=== PATIENT | female | born 1960 | race Caucasian/White ===

== ENCOUNTER 2019-04-10 05:47 | Day surgery (SDC) | payer OTHER, SELFPAY ==
--- NOTE | 2019-04-06 16:41 | PCM.HP.BLA ---
History and Physical Date of Admission: 04/10/19 Liane Nguyen Physician NUTRITION SPECIALIST H&P Signed Encounter Date: 03/25/2019 Expand All Collapse All Hide copied text Hover for details Senia Mcconnell is a 59 year old female who presents for pmb, endometrial polyp- in office endosee reveal polyp. Will proceed with hysteroscopy, dilation and curettage, polypectomy- location of the polyp is right fundal. Denies CP, SOB, Dizziness ? PAST MEDICAL HISTORY PAST MEDICAL HISTORY Diagnosis Date ? EFRAIN-inhibitor cough 03/07/2011 ? Calcaneal spur 01/02/2011 ? Essential hypertension 05/06/2007 ? GERD (gastroesophageal reflux disease) 11/14/2017 ? Obesity, Class II, BMI 35-39.9 11/14/2017 ? Plantar fasciitis, bilateral ? ? Post-menopausal 04/05/2010 ? Posterior tibial tendon dysfunction, left 05/30/2016 ? PAST SURGICAL HISTORY PAST SURGICAL HISTORY Procedure Laterality Date ? COLONOSCOPY ? 11/18/2012 ? EXTENSIVE FOOT SURGERY Left 03/2016 ? 1st MTPJ fusion, Mikayla 2nd, neuroma excision ? FAMILY HISTORY FAMILY HISTORY Problem Relation Age of Onset ? Hypertension Mother ? ? Heart Mother ? ? from heart attack ? Heart Father ? ? Cancer Brother ? ? pancreatic cancer ? Heart Attack Brother ? ? Cancer Brother ? ? oral cancer, metastatic ? Heart Attack Brother ? ? Heart Paternal Grandfather ? ? SOCIAL HISTORY Social History ? Tobacco Use ? Smoking status: Former Smoker ? ? Packs/day: 1.00 ? ? Years: 20.00 ? ? Pack years: 20.00 ? ? Types: Cigarettes ? ? Last attempt to quit: 04/15/2001 ? ? Years since quittin.9 ? Smokeless tobacco: Never Used Substance Use Topics ? Alcohol use: No ? Drug use: No ? CURRENT MEDICATIONS Current Outpatient Medications Medication Sig ? ibuprofen (MOTRIN) 600 mg tablet Take 1 tablet by mouth every 6 hours as needed. FOR PAIN. ? miSOPROStol (CYTOTEC) 200 mcg tablet Take two tablets PO night before procedure and two tablets morning of procedure ? triamterene-hydrochlorothiazide 37.5-25 mg per capsule Take 1 capsule by mouth once daily. ? diltiazem CD (CARDIZEM CD, CARTIA XT) 240 mg 24 hr capsule Take 1 capsule by mouth once daily. ? omeprazole (PRILOSEC) 20 mg capsule Take 1 capsule by mouth daily before breakfast. 1/2 hr before meal. ? losartan (COZAAR) 100 mg tablet Take 1 tablet by mouth once daily. ? No current facility-administered medications for this visit. ? Allergies As of Date: 03/25/2019 Allergen Noted Reaction LISINOPRIL 03/07/2011 Cough TERBINAFINE 11/18/2012 Other: See Comments ? Fully Assessed 03/10/2019 ? ? REVIEW OF SYSTEMS Abdomen: no pain Bladder: no dysuria. Expanded ROS: GENERAL: Negative for fever Allergies and current medication updated:Yes ? EXAM: BP 136/78 Wt 226 lb (102.5kg) LMP 03/19/2010 ? GENERAL: pleasant, female in no apparent distress HEENT: Normocephalic, atraumatic, mucus membranes moist and no lesions NECK: full range of motion DERMATOLOGY: Normal, without lesions, non-icteric and non-hirsute PELVIC: external genitalia normal, normal Bartholin's glands, urethra, [place]'s glands, no vulvar lesions, no cervical lesions, good vaginal support, physiologic discharge present, normal appearing perineal body and perianal region NEURO: alert and oriented x3,exam grossly non-focal EXTREMITIES: normal ? ASSESSMENT AND PLAN: Encounter Diagnosis ? ? ICD-10-CM ? 1. PMB (postmenopausal bleeding) N95.0 ? 2. Endometrial polyp N84.0 ? ? 3. Pt has been counseled on risks/benefits and alternatives of surgery including but not limited to anesthesia, bleeding, infection, uterine perforation with subsequent injury to pelvic structures including bowel, bladder, and vessels. Pt wishes to proceed with surgery at this time. 4. Consent signed 5. Post op meds given. ? ? Liane Edwards MD ?4:27 PM Office Visit on 03/25/2019
[2019-04-10] VITALS (7 sets, daily range): BP systolic 113–142; BP diastolic 61–87; PULSE 64–79; RESP 16; TEMP 36.4–36.8; O2SAT 92–96; BMI 38.3
[2019-04-10] MEDS: Lactated Ringers 1,000 ML 100 ML IV (06:22)
[2019-04-10 06:24] LABS: Hematocrit 45.3 % (37-47); Hemoglobin 15.1 g/dL (12.0-15.0); Mean Corp Hgb Conc 33.3 g/dL (32-36); Mean Corpuscular Hgb 29.6 pg (27.0-32.0); Mean Corpuscular Volume 88.8 fL (81-99); Mean Platelet Vol. 9.3 fl (6.2-12.0); Platelet Count 403 K/mm3 (150-450); RBC Distribution Width CV 13.3 % (11.6-14.6); RBC Distribution Width SD 43.6 fl (35.1-43.9); White Blood Count 9.2 K/mm3 (4.4-11.0)
--- NOTE | 2019-04-10 07:30 | EMB_PTH ---
PATIENT: ODALIS BRITT LOC: [facility] [place] U#:[id number] AGE/SX: 59/F ROOM: RE04/10/[address]: Dr. Liane Edwards, MDDOB: 1960 BED: DIS: 04/10/2019 SPEC #: [id number] RECD: 04/10/19 09:37 STATUS: CHRISTY JUANCARLOS #: [id number] DAKSHA: 04/10/19 07:[address]: Liane Edwards DEPT: SURGICAL PATHOLOGY RECD BY: Albertina Celestin ENTERED: 04/10/19 10:45 SP TYPE: ENDOM BX/C ONOFRE DR: Dr. Duong Collins MD Tissues: Endometrium, NOS Procedures: Surgery Specimen Level IV HEADER OPERATION: Hysteroscopy, D & C, polypectomy, Symphion PRE-OP DIAGNOSIS: Postmenopausal bleeding N95.0, endometrial polyp N84.0 TISSUE SUBMITTED: Endometrial polyp MICROSCOPIC DIAGNOSIS Endometrium, curettage: Polypoid fragments of proliferative endometrium with focal glandular breakdown and cystic change. AM:naga 04/13/19 MICROSCOPIC DESCRIPTION Slides are reviewed. GROSS DESCRIPTION Received in fixative is one container labeled with the patient's name and designated endometrial polyp. The specimen consists of multiple irregular fragments of light pink-marks soft tissue that in aggregate measure 2 x 1 x 0.2 cm. The specimen is totally submitted in one cassette. / AM:naga 04/10/19 TC:5 CPT: 08814
[2019-04-10] MEDS: Lubricating Jelly 60 GM Tube 30 GM TOPICAL (07:39)
--- NOTE | 2019-04-10 07:44 | PCM.OPRPT ---
Report of Operation Date of Procedure: 04/10/19 Pre-Operative Diagnosis: PMB, endometrial polyp Post-Operative Diagnosis: same Surgery/Procedure Performed:: hysteroscopy, D&C, polypectomy with symphion Description of Surgical Findings:: Endometrial polyp arising from right fundal aspect Type of Anesthesia:: MAC Specimen's removed: endometrial polyp Drains: none Estimated Blood Loss (mL): minimal Fluids Replaced: 400 Description of Procedure: informed consent was obtained the patient was taken the operating room she was placed in supine position. She was given anesthesia. She was then placed in the [facility] where she was prepped and draped in the normal sterile fashion. bladder drained, 200cc urine. At this time the weighted speculum was placed in the posterior fornix of vagina. Single-tooth tenaculum was used to gently grasp the anterior lip the cervix. At this time the uterine cavity was sounded to approximately 7cm. Gentle dilatation was performed once adequate dilatation of the cervix was achieved the hysteroscope using normal saline as a distention medium was placed. endometrial polyp from right fundal aspect appreciated. Otherwise no gross abnormalities. Tubal ostia visualized. symphion resecting device opened and used to removed polyp. This will be sent to pathology for evaluation. Procedure was deemed complete successful there are no complications. Anticipated normal postoperative course. Instrument lap count correct ?2. fluid deficit was 350cc Vaginal Sweep was negative. Grafts/Implants Used: none - Complications none - Admit VTE Documentation VTE Present on Admission: Yes VTE Mechan Device Prophylaxis: SCD's VTE Pharm Prophylaxis ordered?: No
--- NOTE | 2019-04-10 07:48 | DCINST_ITS ---
Discharge Diet: No Restrictions Discharge Activity: Return to Normal Activity, May Shower, May Take a Tub Bath - in 2 weeks. Allergies/Adverse Reactions: Allergies lisinopril Adverse Reaction (Verified 04/10/19 06:10) cough terbinafine Adverse Reaction (Verified 04/10/19 06:10) bladder inflammation Medications to take at Discharge Diltiazem HCl [Cartia Xt] 240 mg PO DAILY 04/06/19 Losartan Potassium [Cozaar] 100 mg PO DAILY 04/06/19 Omeprazole [Prilosec] 20 mg PO DAILY PRN 04/06/19 Triamterene 37.5MG/Hctz 25MG [Maxzide 37.5 mg-25 mg Tablet] 1 tab PO DAILY 04/06/19 Primary Care Physician: Duong Collins MD [Primary Care Provider] - Test Results: Test results from this visit will be discussed in further detail at your follow- up appointment, if applicable.
== END 2019-04-10 08:51 | disposition home or self-care (01) ==
LOC: SDC 05:51 → AC 05:53
PROVIDERS: Family Provider Internal Medicine; PCP Internal Medicine; Referring Provider Obstetrics & Gynecology; Visit Provider Obstetrics & Gynecology
PROC: 0UB98ZZ Excision of Uterus, Via Natural or Artificial Opening Endoscopic (ICD-10-PCS; CPT 58558; principal; 2019-04-10 07:15)
DX: N84.0 Polyp of corpus uteri (principal); I10 Essential (primary) hypertension; K21.9 Gastro-esophageal reflux disease without esophagitis; E66.9 Obesity, unspecified; Z87.891 Personal history of nicotine dependence; Z79.899 Other long term (current) drug therapy; Z68.38 Body mass index [BMI] 38.0-38.9, adult
CPT/HCPCS: 58558; 36415; 85027; 88305; J7120; J2405

== ENCOUNTER 2022-01-18 07:00 | Emergency (ER) | payer OTHER, SELFPAY ==
[2022-01-18 07:02] VITALS: BP 164/141; PULSE 92; RESP 16; TEMP 36.2; O2SAT 97; BMI 33.2
--- NOTE | 2022-01-18 07:15 | CT_ITS ---
STUDY: CT ABDOMEN AND PELVIS WITH CONTRAST REASON FOR EXAM: Female, 61 years old. One week history of worsening abdominal pain with nausea and vomiting. RADIATION DOSAGE (If Supplied By Facility): CTDIvol = ( 13.39 ) mGy, DLP = ( 707.14 ) mGycm TECHNIQUE: Transaxial images were obtained from the dome of the diaphragm to the symphysis pubis without oral contrast. IV 100mL Isovue-300 was administered. Sagittal and coronal images were reconstructed. Individualized dose optimization techniques were used for this CT. COMPARISON: None. FINDINGS: The visualized lung bases are unremarkable. The visualized portions of the heart are within normal limits. Normal liver. Normal gallbladder and extrahepatic biliary system. Normal spleen. Normal pancreas. Normal bilateral adrenal glands. There is a 2.3 cm cyst in the anterior upper pole of the right kidney. 3 mm nonobstructive calculus in the upper pole of the right kidney. There is engorgement of the left kidney. Left perinephric stranding. Mild degree of hydronephrosis due to a 1.1 cm calculus at the left ureteral pelvic junction. Scattered nonobstructive left intrarenal calculi. There is a small hiatal hernia. Normal small intestine. There are multiple colonic diverticula consistent with diverticulosis. There are surgical clips in the region of the appendix consistent with a prior appendectomy. There is diffuse atherosclerotic calcification of the abdominal aorta, without a demonstrated aneurysm. Normal inferior vena cava. There is borderline retroperitoneal lymphadenopathy with enlarged nodes no greater than 10mm in the short axis diameter. Normal urinary bladder. There is a 3.9 cm x 3.9 cm fibroid in the left side of the uterus. Normal abdominal wall. Disc space narrowing and subchondral sclerosis at the L5-S1 level. CT/Abdomen/Pelvis W IV Cont ONLY IMPRESSION: 1.1 mm calculus at the left ureteropelvic junction causing hydronephrosis and left perinephric stranding. Scattered bilateral nonobstructive intrarenal calculi. Fibroid uterus. Sigmoid diverticulosis. Electronically Signed: Nicolás Carter MD at 8:58 EDT ,
--- NOTE | 2022-01-18 07:16 | ED.VIS.GI ---
HPI HPI - GI History of Present Illness Chief Complaint: Abd Pain Detail of Chief Complaint: Abdominal pain Informant: patient Abdominal Pain/Flank Pain Current Severity: Moderate Narrative Narrative: Patient presents to the emergency department with abdominal pain that she has had off and on for the last month. Pain became more severe over the last 2 days. Patient states it involves the upper left quadrant. Patient states that she was up all night vomiting last night. Patient states she was seen a month ago at urgent care and referred to another physician but had no testing or imaging. Patient states the pain had gone away for a time until he came back 2 days ago. She denies fever although she said some chills. She denies dysuria. No history of kidney stones. She denies chest pain. Patient told me she had some diarrhea last night but then told me that her stools have been formed and solid. She denies alcohol use. Prior similar symptoms: No PFSH PFS Medical History (Updated 01/18/22 @ 10:[address] Jaylon Meadows, ) Hypertension Home Medications diltiazem HCl 240 mg capsule,extended release 24 hr 300 mg PO DAILY 04/06/19 [History Last Taken Unknown] losartan 100 mg tablet 100 mg PO DAILY 04/06/19 [History Last Taken 04/10/19] triamterene 37.5 mg-hydrochlorothiazide 25 mg tablet 1 tab PO DAILY 04/06/19 [History Last Taken 04/10/19] chlorthalidone 25 mg tablet 25 mg PO DAILY 01/18/22 [History Last Taken Unknown] hydrocodone-acetaminophen 5-325mg 5mg-325mg 1 tab PO Q4H PRN PRN Pain 2 days #10 TABLETS 01/18/22 [Rx Last Taken Unknown] naproxen 500 mg tablet 500 mg PO BID #14 tabs 01/18/22 [Rx Last Taken Unknown] ondansetron 4 mg disintegrating tablet 4 mg PO Q8H PRN PRN Nausea #10 tabs 01/18/22 [Rx Last Taken Unknown] Allergy/AdvReac Type Severity Reaction Status Date / Time lisinopril AdvReac cough Verified 01/18/22 07:05 terbinafine AdvReac bladder Verified 01/18/22 07:05 inflammation Social History Smoking Status: Former smoker ROS ROS ED Review of Systems ROS Unobtainable: other Constitutional Constitutional ED: Reports lethargy; Denies chills, fever(s), sweats or weight loss Eyes Eyes: Denies blurry vision, change in vision or diplopia ENT ENT ED: Denies rhinorrhea or sore throat Cardiovascular Cardiovascular: Denies chest pain, orthopnea or racing heartbeat Respiratory/Chest Respiratory/Chest: Denies cough, dyspnea, dyspnea on exertion, orthopnea or sputum Gastrointestinal Gastrointestinal: Reports abdominal pain, nausea and vomiting; Denies diarrhea Genitourinary Genitourinary ED: Denies dysuria, hematuria or urinary frequency Musculoskeletal Musculoskeletal: Denies arthralgias, back pain, myalgias or neck pain Integumentary Denies abscess, Abrasions or rash Neurologic Neurologic: Denies headache(s) or weakness Psychiatric Psychiatric: Denies anxiety, depression or suicidal thoughts Endocrine Endocrinology: Denies polydipsia, polyphagia or polyuria Hematologic/Lymphatic Hematologic/Lymphatic: Denies easy bleeding, easy bruising or lymphadenopathy Allergic/Immunologic Allergic/Immunologic ED: Denies mouth swelling, tongue swelling or urticaria EXAM Physical Exam Const Vital Signs: 01/18/22 07:02 01/18/22 09:34 Temperature 97.1 F L Temperature Source Temporal Pulse Rate 92 80 Respiratory Rate 16 16 Blood Pressure 164/141 H 155/68 H Blood Pressure Mean 148 97 Pulse Ox 97 99 Oxygen Delivery Method Room Air Room Air Positive well nourished and well developed General Appearance ED: well developed and NAD HEENT Reports TM's clear and moist mucous membranes normocephalic and atraumatic; Negative for trauma or tenderness Tympanic Membrane ED: Yes TM's clear Eyes PERRL and EOMs intact bilaterally General Eye ED: Negative for pale conjunctiva or scleral icterus Neck no lymphadenopathy, supple and no JVD General: Negative for tenderness Chest Wall inspection of chest normal and palpation of chest normal Chest: Negative for tenderness Resp normal respiratory effort and clear to auscultation bilaterally Effort and Inspection: Negative for respiratory distress or pain with movement Auscultation: Negative for rhonchi, wheezes or diminished lung sounds Cardio regular rate, regular rhythm, S1 normal heart sound, S2 normal heart sound and no murmurs Peripheral Pulses: pulses 2+ throughout GI normal to inspection, nondistended, normoactive bowel sounds, soft to palpation, non-distended and no masses GI Narrative: Mild tenderness over left upper quadrant and left lower quadrant. There is no rebound, rigidity, or peritoneal signs. No tenderness over the right lower quadrant or right upper quadrant. No masses palpated however exam somewhat limited due to patient's body habitus. Back/Spine no CVA tenderness and no thoracic nor lumbar tenderness Extremity normal to inspection General Extremety ED: Negative for edema General Extremity: Negative for edema Neuro oriented x3, CN's II-XII intact bilaterally, no sensory deficits noted and gait normal Sensorium / Orientation: awake, alert, oriented to person, oriented to place and oriented to time Motor Exam: strength 5/5 throughout and strength abnormal Psych mental status grossly normal Skin no rashes or lesions noted and no wounds MDM MDM MDM Narrative Medical decision making narrative: IV line established on arrival. Patient was medicated morphine and Zofran and initially had good pain relief but then the pain came back. Patient was given another dose of morphine and Zofran. Lab work-up showed a slight elevated white count of 15.7. Chemistries unremarkable. Lactate was normal. LFTs were unremarkable. Urinalysis did not show signs of infection. CT scan of the abdomen pelvis read by radiology as a 1.1 mm stone left ureter near the UVJ with mild hydroureter and some perinephric stranding. At this point patient is comfortable and will send home with urine strainers. Patient apparently did see a urologist and has when she can follow-up with. Patient given a prescription for [place] and Naprosyn and Zofran. Advised to return if worsening pain, fever, vomiting, or condition worsen anyway. Lab Data Attestation: I reviewed the patient's lab results. Labs: Laboratory Results - last 24 hr 01/18/22 01/18/22 01/18/22 07:05 07:05 07:30 WBC 15.7 H RBC 4.89 Hgb 15.1 H Hct 43.1 MCV 88.1 MCH 30.9 MCHC 35.0 RDW Std Deviation 42.0 RDW Coeff of Stephanie 13.0 Plt Count 441 MPV 10.2 Immature Gran % (Auto) 0.300 Neut % (Auto) 82.2 H Lymph % (Auto) 14.0 L [place] % (Auto) 3.4 Eos % (Auto) 0.0 Baso % (Auto) 0.1 Absolute Neuts (auto) 12.9 H Absolute Lymphs (auto) 2.20 Nucleated RBC % 0 Sodium 139 Potassium 3.3 L Chloride 104 Carbon Dioxide 26.0 Anion Gap 9 BUN 27 H Creatinine 1.19 H Estim Creat Clear Calc 45.24 Est GFR (MDRD) Af Amer 59 L Est GFR (MDRD) Non-Af 49 L BUN/Creatinine Ratio 22.7 H Glucose 135 H Lactic Acid 1.1 Calcium 9.2 Total Bilirubin 0.40 AST 15 ALT 26 Alkaline Phosphatase 80 Troponin I High Sens 4 Total Protein 7.2 Albumin 3.7 Globulin 3.5 Albumin/Globulin Ratio 1.1 Lipase 231 Urine Color Urine Clarity Urine pH Ur Specific [place] Urine Protein Urine Glucose (UA) Urine Ketones Urine Occult Blood Urine Nitrite Urine Bilirubin Urine Urobilinogen Ur Leukocyte Esterase Urine RBC Urine WBC Ur Squamous Epith Cells Urine Bacteria Urine Mucus 01/18/22 09:30 WBC RBC Hgb Hct MCV MCH MCHC RDW Std Deviation RDW Coeff of Stephanie Plt Count MPV Immature Gran % (Auto) Neut % (Auto) Lymph % (Auto) [place] % (Auto) Eos % (Auto) Baso % (Auto) Absolute Neuts (auto) Absolute Lymphs (auto) Nucleated RBC % Sodium Potassium Chloride Carbon Dioxide Anion Gap BUN Creatinine Estim Creat Clear Calc Est GFR (MDRD) Af Amer Est GFR (MDRD) Non-Af BUN/Creatinine Ratio Glucose Lactic Acid Calcium Total Bilirubin AST ALT Alkaline Phosphatase Troponin I High Sens Total Protein Albumin Globulin Albumin/Globulin Ratio Lipase Urine Color Yellow Urine Clarity Clear Urine pH 7.0 Ur Specific [place] 1.010 Urine Protein Negative Urine Glucose (UA) Normal Urine Ketones Negative Urine Occult Blood 50 H Urine Nitrite Negative Urine Bilirubin Negative Urine Urobilinogen Normal Ur Leukocyte Esterase Negative Urine RBC 5-10 SEEN Urine WBC 0 SEEN Ur Squamous Epith Cells 0-5 SEEN Urine Bacteria 0 SEEN Urine Mucus 0 SEEN Radiography Diagnostic Testing: Clinical Impression(s) from Imaging Studies Abdomen/Pelvis CT 01/18/22 07:15 IMPRESSION: 1.1 mm calculus at the left ureteropelvic junction causing hydronephrosis and left perinephric stranding. Scattered bilateral nonobstructive intrarenal calculi. Fibroid uterus. Sigmoid diverticulosis. Electronically Signed: Nicolás Carter MD at 8:58 EDT , EKG Initial EKG: Attestation: I personally reviewed and interpreted this EKG as follows: Comments: Sinus rhythm with a ventricular rate of 57 bpm with no acute ST segment changes Discharge Plan Triage Chief Complaint: Abd Pain ED Provider: Jaylon Meadows Dx/Rx/DC Orders Clinical Impression: Abdominal pain, Urolithiasis Instructions: ED Kidney Stone w/ Colic Prescriptions: New hydrocodone-acetaminophen [hydrocodone-acetaminophen] 5-325 mg tablet 1 tab PO Q4H PRN PRN (Reason: Pain) 2 Days Qty: 10 0RF ondansetron [ondansetron] 4 mg tablet,disintegrating 4 mg PO Q8H PRN PRN (Reason: Nausea) Qty: 10 0RF naproxen 500 mg tablet 500 mg PO BID Qty: 14 0RF No Action diltiazem HCl 240 MG capsule,extended release 24hr 300 mg PO DAILY losartan 100 MG tablet 100 mg PO DAILY triamterene-hydrochlorothiazid 1 EACH tablet 1 tab PO DAILY chlorthalidone 25 mg tablet 25 mg PO DAILY Label Comments: take 1 tablet by mouth once daily Primary Care Provider: Duong Collins Referrals: Sherrill Marrero MD [Med Staff - Active Staff] - 3-5 Days Duong Collins MD [Primary Care Provider] - Disposition Disposition: Home, Self Care
[2022-01-18] MEDS: Ondansetron 4 MG/2 ML Vial IV ×2 (07:22→09:29)
[2022-01-18] MEDS: Morphine 4 MG/ML Syringe IV ×2 (07:22→09:30)
[2022-01-18] MEDS: 0.9% Normal Saline 1,000 ML 125 ML IV (07:23)
[2022-01-18] MEDS: Contrast Allergy Safety Check IV (07:24)
[2022-01-18 07:41] LABS: Absolute Neutrophil Count 12.9 X10^3/uL (2.0-7.7); Basophil# 0.02 X10^3/uL; Basophil% 0.1 % (0-1); Hematocrit 43.1 % (37-47); Hemoglobin 15.1 g/dL (12.0-15.0); Mean Corpuscular Hgb 30.9 pg (27.0-32.0); Mean Corpuscular Volume 88.1 fL (81-99); Mean Platelet Vol. 10.2 fl (6.2-12.0); Monocyte# 0.54 X10^3/uL; Monocyte% 3.4 % (0-10); NRBC Flagged by Analyzer 0 % (0-5); Neutrophil # 12.89 X10^3/uL (2.7-7.7); Neutrophil % 82.2 % (47-70); Platelet Count 441 K/mm3 (150-450); Red Blood Count 4.89 M/mm3 (4.2-5.4); White Blood Count 15.7 K/mm3 (4.4-11.0)
[2022-01-18 07:57] LABS: ALB/GLOB Ratio 1.1 RATIO (0.9-2.4); AST(SGOT) 15 U/L (15-37); Alanine Aminotransfer ALT/SGPT 26 U/L (13-56); Albumin, Serum 3.7 g/dL (3.2-5.0); Alkaline Phosphatase 80 U/L (45-117); Anion Gap 9 (5-15); BUN 27 mg/dL (7-18); BUN/Creat Ratio 22.7 RATIO (10-20); Calcium,Total 9.2 mg/dL (8.5-10.1); Chloride 104 mmol/L (98-107); Creatinine, Serum 1.19 mg/dL (0.55-1.02); EST Glomerular Filtration Rate 49 mL/min (>60); Est Glom Filt Rate - Afr Amer 59 mL/min (>60); Estimated Creatinine Clearance 45.24 ml/min; Globulin 3.5 g/dL (2.2-4.2); Glucose 135 mg/dL (74-106); Lipase 231 U/L (73-393); Potassium 3.3 mmol/L (3.5-5.1); Protein, Total 7.2 g/dL (6.4-8.2); Sodium Level 139 mmol/L (136-145); Troponin-I HS 4 pg/mL (3.0-54.0)
[2022-01-18 08:37] LABS: Lactic Acid 1.1 mmol/L (0.4-1.9)
[2022-01-18] MEDS: Ketorolac 15 MG/ML Vial IV (09:29)
[2022-01-18 09:34] VITALS: BP 155/68; PULSE 80; RESP 16; O2SAT 99
[2022-01-18 09:43] LABS: Bacteria 0 SEEN /hpf (None Seen); Mucous, Urine 0 SEEN /hpf (<or=2+); White Blood Cells 0 SEEN /hpf (0-5)
[2022-01-18 10:05] LABS: Color, Urine Yellow (Yellow); Glucose, Dipstick Normal (Normal); Ketone-Dipstick Negative (Negative); Leukocyte Esterase-Dipstick Negative /ul (Negative); Nitrite-Dipstick Negative (Negative); Occult Blood-Urine 50 /ul (Negative); Protein-Dipstick Negative (Negative); Urine Bilirubin Dipstick Negative (Negative); Urine Clarity Clear (Clear); Urine Urobilinogen Normal (Normal)
[2022-01-18 10:15] LABS: Squamous Epithelial Cells - UA 0-5 SEEN /hpf (5-10)
[2022-01-18 10:18] LABS: Red Blood Cells-Urine 5-10 SEEN /hpf (0-5)
[2022-01-18 10:36] VITALS: BP 137/69; PULSE 71; RESP 15; O2SAT 98
== END 2022-01-18 10:39 | disposition home or self-care (01) ==
PROVIDERS: Emergency Provider Emergency Medicine; PCP Internal Medicine; Visit Provider Emergency Medicine
DX: R10.9 Unspecified abdominal pain (principal); N13.2 Hydronephrosis with renal and ureteral calculous obstruction; I10 Essential (primary) hypertension; Z87.891 Personal history of nicotine dependence
CPT/HCPCS: 74177; 80053; 81001; 83605; 83690; 84484; 85025; 93005; 99283; J7030; Q9967; A4216; J2405